=== PATIENT | female | born 1950 | race Two or more races ===

== ENCOUNTER → 2019-12-29 10:21 | Outpatient (CLI) | payer MEDICARE, SELFPAY ==
--- NOTE | ~2019-12-29 | US_ITS ---
EXAMINATION: US transvaginal EXAM DATE: 12/29/2019 10:43 INDICATION: Anemia. TECHNIQUE: Pelvic transvaginal sonogram was performed. There are multiple grayscale and Doppler imag es available for interpretation. There is no prior study for comparison. FINDINGS: Uterus and ovaries are not identified. Vaginal cuff is unremarkable. No pelvic masses ident ified or free pelvic fluid. IMPRESSION: Uterus, ovaries not identified. Reviewed, dictated and finalized at location B. GER MALL
== END ==
PROVIDERS: PCP Emergency Medicine; Visit Provider Emergency Medicine
DX: D64.9 Anemia, unspecified (principal)
CPT/HCPCS: 76830

== ENCOUNTER → 2020-01-12 09:21 | Outpatient (CLI) | payer MEDICARE, SELFPAY ==
--- NOTE | ~2020-01-12 | MM_ITS ---
EXAMINATION: MM diagnostic mammo unilat RT HISTORY: Focal mammographic asymmetry reported in upper outer quadrant of right breast on 12/20/2019 s creening mammogram TECHNIQUE: Additional 3-D tomosynthesis images of the right breast were performed and synthetic 2-D i mages were generated. CAD analysis was submitted and interpreted. COMPARISON: 12/20/2019 bilateral digital screening mammogram FINDINGS: No reproducible mass or architectural distortion is evident on these supplemental views. Th e previously reported asymmetry is consistent with overlapping fibroglandular tissue. IMPRESSION: 1. No mammographic evidence of malignancy 2. Routine annual mammographic screening follow-up is recommended BI-RADS Category 1: Negative Reviewed, dictated and finalized at location A. K MANAGER
== END ==
PROVIDERS: Visit Provider Emergency Medicine
DX: R92.2 Inconclusive mammogram (principal)
CPT/HCPCS: 77065

== ENCOUNTER → 2020-02-05 18:28 | Outpatient (CLI) | payer MEDICARE, SELFPAY ==
--- NOTE | ~2020-02-05 | XR_ITS ---
EXAMINATION: XR chest 2V EXAM DATE: 02/05/2020 18:41 INDICATION: Acute bronchitis. TECHNIQUE: Frontal and lateral projections of the chest obtained and reviewed. There is no prior susannah dy for comparison. FINDINGS: The lungs are clear. There are no pleural effusions. The cardiomediastinal silhouette is within nor mal limits. There is no pneumothorax suspected. The bones and soft tissues are unremarkable. IMPRESSION: No acute cardiopulmonary findings. Reviewed, dictated and finalized at location A.
== END ==
PROVIDERS: PCP Emergency Medicine; Visit Provider Emergency Medicine
DX: J20.9 Acute bronchitis, unspecified (principal)
CPT/HCPCS: 71046

== ENCOUNTER → 2021-01-14 07:41 | Outpatient (CLI) | payer MEDICARE, SELFPAY ==
[2021-01-14 21:18] LABS: SARS-CoV-2 RNA PCR Negative
== END ==
PROVIDERS: PCP Emergency Medicine; Visit Provider Emergency Medicine
DX: R68.89 Other general symptoms and signs (principal); Z20.822 Contact with and (suspected) exposure to COVID-19
CPT/HCPCS: C9803; U0003; U0005

== ENCOUNTER → 2022-08-05 12:35 | Outpatient (CLI) | payer MEDICARE, SELFPAY ==
--- NOTE | ~2022-08-05 | MM_ITS ---
EXAMINATION: MM screening misael BI w shyanne HISTORY: Screening mammogram TECHNIQUE: Craniocaudal and mediolateral oblique 3-D tomosynthesis images were obtained and synthetic 2-D images were generated. CAD analysis was submitted and interpreted. COMPARISON: October 12, 2020 diagnostic right mammogram, December 20, 2019 bilateral screening mammog danni BREAST PARENCHYMAL COMPOSITION: The breasts are heterogeneously dense, which may obscure small masses . FINDINGS: There is no evidence of suspicious mass, calcification, or architectural distortion to sugg est malignancy in either breast. There has been no suspicious interval change. IMPRESSION: 1. No mammographic evidence of malignancy. 2. Recommend routine screening mammography in one year. BI-RADS Category 1: Negative Reviewed, dictated and finalized at location A.
== END ==
PROVIDERS: PCP Emergency Medicine; Visit Provider Emergency Medicine
DX: Z12.31 Encounter for screening mammogram for malignant neoplasm of breast (principal)
CPT/HCPCS: 77063; 77067

== ENCOUNTER 2022-09-01 01:04 | Day surgery (SDC) | payer MEDICARE, SELFPAY ==
[2022-08-14 14:34] VITALS: BMI 19.3
[2022-09-01 08:19] VITALS: BP 135/78; PULSE 74; RESP 16; TEMP 36.1; O2SAT 100
[2022-09-01] MEDS: LACTATED RINGERS 1,000 ML 150 ML IV CONT (08:27)
--- NOTE | 2022-09-01 09:05 | P.PNAN_ITS ---
Anes - Initial Pre Proc Eval Procedure: Operation Date: 09/01/22 09:30 Proposed Procedures p Esophagogastroduodenoscopy & Screening Colonoscopy - Miguel Butterfield MD Date/Time: 09/01/22 09:05 Surgeon: Miguel Pineda MD Pre Op Diagnosis: Neoplasm screening, weightloss Patient Data Age: 72 Gender: F Height: 1.57 m Weight: 47.2 kg Last Vital Signs Temp 96.9 F L 09/01/22 08:19 Pulse 74 09/01/22 08:19 Resp 16 09/01/22 08:19 BP 135/78 09/01/22 08:19 Pulse Ox 100 09/01/22 08:19 O2 Del Method Room Air 09/01/22 08:19 Allergies Allergy/AdvReac Type Severity Reaction Status Date / Time No Known Allergies Allergy Unverified 09/01/22 08:17 Home Medications Medication Instructions Recorded Confirmed Type levothyroxine 50 mcg tablet 50 mcg PO DAILY 08/14/22 09/01/22 History (Euthyrox) Patient hx anesthesia problems: none Family hx anesthesia problems: none Results Review: All pre-operative results and documents have been reviewed as part of the pre- operative evaluation. [facility] Social History Social History Substance use: never Substance use type: does not use Living arrangements: with family Additional living arrangements comments: lives with son- [facility] care concerns: No Anes - Eval Final PreProcedure Day of Procedure 09/01/22 09:05 Patient weight: normal Heart: regular rate and rhythm Lungs: clear to auscultation Airway: Mallampati scale class II Neurological: alert and oriented Last oral intake: >/= 8 hours ASA classification: III Emergent: no Anesthetic plan: proceed Anesthesia type and monitoring: general GIVS and standard monitoring Results Review: All pre-operative results and documents have been reviewed as part of the pre- operative evaluation. Informed Consent: The patient's anesthetic plan and its attendant risks and benefits were discussed with the patient/family/POA. Questions were solicited and answers provided to the satisfaction of the patient/family/POA.
--- NOTE | 2022-09-01 09:33 | PM.HPGS ---
History of Present Illness History of Present Illness Consent: Risks, benefits, and alternatives have been discussed and questions answered. Patient agrees to proceed with procedure. Chief complaint: Neoplasm screening, weightloss Narrative: Ivelisse Soares is a 72 year old female with weight loss, never had scopes Review of Systems Constitutional: Constitutional: Denies headache(s) and Denies weakness Eyes: Eyes: Denies blurry vision ENT: Reports Normal hearing present, Denies headache(s) and Denies neck pain Cardiovascular: Cardiovascular: Denies chest pain and Denies dyspnea Respiratory: Respiratory: Denies dyspnea Gastrointestinal: Gastrointestinal: Reports no additional gastrointestinal complaints Genitourinary: Genitourinary: Denies dysuria Musculoskeletal: Musculoskeletal: Denies neck pain Integumentary/Breasts: Skin/Breast: Denies dry skin Neurologic: Reports Normal hearing present, Denies headache(s) and Denies weakness Psychiatric: Psychiatric: Denies anxiety Endocrine: Endocrine: Denies change in body appearance Hematologic/Lymphatic: Hematologic/Lymphatic: Denies easy bleeding Allergic/Immunologic: Allergic/Immunologic: Denies urticaria PMFSH Past Medical History Medical History (Updated 09/01/22 @ 09:33 by Miguel Pineda MD) Weight loss Social History Social History Substance use: never Substance use type: does not use Living arrangements: with family Additional living arrangements comments: lives with dari Ирина [facility] care concerns: No Meds Home Medications and Allergies Home Medications Medication Instructions Recorded Confirmed Type levothyroxine 50 mcg tablet 50 mcg PO DAILY 08/14/22 09/01/22 History (Euthyrox) Allergies Allergy/AdvReac Type Severity Reaction Status Date / Time No Known Allergies Allergy Unverified 09/01/22 08:17 Vital Signs Vital Signs - 24 hr 09/01/22 08:19 Temperature 96.9 F L Pulse Rate 74 Respiratory Rate 16 Blood Pressure 135/78 Pulse Oximetry 100 Oxygen Delivery Room Air Exam Const: General: comfortable and no acute distress HENMT: Face/Nose/Sinus: Normal nares present Eyes: General: appearance normal, both eyes and all related structures Neck: Neck: no JVD Resp: Auscultation: clear to auscultation bilaterally Cardio: Rate: regular rate Rhythm: regular rhythm GI: Inspection: non-distended GI Palp: Yes Soft to palpation Skin: General skin exam: normal color Neuro: General: gait normal Speech: normal speech Extrem: General: normal to inspection Psych: Mental Status: mental status grossly normal Assessment and Plan Assessment and plan (1) Weight loss: Code(s): R63.4 - Abnormal weight loss Status: Acute Assessment and Plan: egd and colonoscopy
--- NOTE | 2022-09-01 09:39 | SUR.OPER ---
EGD ended at 932. Colonoscopy began at 937.
[2022-09-01 09:50] VITALS: BP 111/74; PULSE 83; RESP 17; O2SAT 99
[2022-09-01 10:00] VITALS: BP 101/68; PULSE 81; RESP 15; O2SAT 99
[2022-09-01 10:10] VITALS: BP 132/85; PULSE 77; RESP 20; O2SAT 99
== END 2022-09-01 10:30 | disposition home or self-care (01) ==
PROVIDERS: PCP Emergency Medicine; Visit Provider Internal Medicine Gastroenterology
PROC: 0DJ08ZZ Inspection of Upper Intestinal Tract, Via Natural or Artificial Opening Endoscopic (ICD-10-PCS; CPT 43235; principal; 2022-09-01 09:30)
DX: Z12.11 Encounter for screening for malignant neoplasm of colon (principal); K64.8 Other hemorrhoids; K29.50 Unspecified chronic gastritis without bleeding; E03.9 Hypothyroidism, unspecified
CPT/HCPCS: 43239; G0121; 88305; 88342; J2704; J7120

== ENCOUNTER 2023-11-10 14:42 | Emergency (ER) | payer MEDICARE, SELFPAY ==
[2023-11-10 14:52] VITALS: BP 135/76; PULSE 77; RESP 16; TEMP 36.3; O2SAT 100
--- NOTE | 2023-11-10 15:04 | ED.EAR ---
HPI - Ear Problem General Chief complaint: Ear Stated complaint: FB R EAR Time Seen by Provider: 11/10/23 14:55 Source: patient Mode of arrival: ambulatory Limitations: no limitations History of Present Illness HPI Narrative: Ms. Soares is a 73-year-old female patient presenting to the clinic today with complaints of possible foreign body in the right ear. She reports over the last day or 2 she was using a Q-tip in thinks that there may be part of the Q-tip stuck in her ear. She states there is decreased hearing in the right ear without pain Related Data Home Medications Medication Instructions Recorded Confirmed levothyroxine 50 mcg tablet 50 mcg PO DAILY 08/14/22 11/10/23 (Euthyrox) Allergies Allergy/AdvReac Type Severity Reaction Status Date / Time No Known Allergies Allergy Verified 11/10/23 14:57 Review of Systems Review of Systems: Pertinent positives per HPI. Patient denies any fever, chills, rash, headache, visual changes, dizziness, cough, runny nose, sore throat, shortness of breath, chest pain, palpitations, nausea, vomiting, diarrhea, constipation, abdominal pain, or any urinary issues. [facility] Past Medical History Medical History H. pylori infection Weight loss Social History Social History Substance use: never Substance use type: does not use Living arrangements: with family Additional living arrangements comments: lives with son- [facility] care concerns: No Comments At the time of my signature, I reviewed and agree with the nursing past medical, surgical, social, and family history. There is no relevant family history pertinent to the patient complaint. Exam Narrative: General: Well-developed, well nourished, in no apparent distress Head: Normocephalic, atraumatic Eyes: Pupils equally round and reactive to light bilaterally, EOM intact, sclera and conjunctive clear, no discharge, lids normal Ears: TMs intact and clear, right ear canal cerumen impaction, left ear canal clear, no drainage, grossly hearing normal. Ear lavage was performed to the right ear canal successfully removing cerumen infection Nose: Nares patent, no discharge, no inflammation, no sinus tenderness. Mouth: Oropharynx without lesions or masses, good dentition, MMM. Neck: Supple, trachea midline, no enlargement of anterior or posterior cervical nodes, no thyroid masses or goiter palpable. Cardio: Regular rate and rhythm, s1 and s2 normal, no murmur appreciated. Resp: Clear to auscultation bilaterally anteriorly and posteriorly, no rhonchi, rales, wheezing or rubs Course Course Emergency Course: Portions of this record may have been created with voice recognition software. Level of Care: Express Care Visit Vital Signs Vital signs: Vital Signs Oxygen Delivery Room Air 11/10/23 14:51 Temperature 36.3 C L 11/10/23 14:52 Pulse Rate 77 11/10/23 14:52 Respiratory Rate 16 11/10/23 14:52 Blood Pressure 135/76 11/10/23 14:52 Pulse Oximetry 100 11/10/23 14:52 Oxygen Delivery Room Air 11/10/23 14:51 Vital signs reviewed Procedures Ear Wax Removal Right Ear: Ear Wax Removal Date: 11/10/23 Results: Re-examined: cerumen removed completely TM Examination: TM(s) intact, normal appearance Ear Canal Exam: atraumatic Patient Tolerated Procedure: well and no complications Complications: no problems Technique: ear canal irrigated and ear canal curetted Additional Comments: Verbal consent obtained for ear lavage. Risk and benefits explained to patient and they voiced understanding. A mixture of half warm water and half peroxide was used to irrigate ear canals. An lighted ear curette was then used to remove the cerumen from the outer external canal of ears. Cerumen was successfully removed from ear canal
== END 2023-11-10 15:10 | disposition home or self-care (01) ==
PROVIDERS: Emergency Provider Nurse Practitioner Family; PCP Emergency Medicine
DX: H61.21 Impacted cerumen, right ear (principal)
CPT/HCPCS: 69210; 99212; G0463

== ENCOUNTER 2024-05-10 12:40 | Outpatient (CLI) | payer MEDICARE, SELFPAY ==
--- NOTE | ~2024-05-10 | MM_ITS ---
EXAMINATION: MM screening misael BI w shyanne HISTORY: Screening TECHNIQUE: Craniocaudal and mediolateral oblique 3-D tomosynthesis images were obtained and synthetic 2-D images were generated. CAD analysis was submitted and interpreted. COMPARISON: Comparison to multiple prior studies sequentially, with oldest reviewed study dated 12/20. BREAST PARENCHYMAL COMPOSITION: Dense: The breasts are heterogeneously dense, which may obscure small masses FINDINGS: There is no evidence of suspicious mass, calcification, or architectural distortion to sugg est malignancy in either breast. There has been no suspicious interval change. IMPRESSION: 1. No mammographic evidence of malignancy. 2. Recommend routine screening mammography in one year. BI-RADS Category 1: Negative Reviewed, dictated and finalized at location B.
--- NOTE | ~2024-05-10 | US_ITS ---
Thyroid ultrasound. Clinical History: Thyroid nodule COMPARISON: 12/20/2019 Findings: Real-time sonography of the thyroid gland was performed. The right lobe measures 3.3 x 1.0 x 0.9 cm. The left lobe measures 2.1 x 0.9 x 1.0 cm. The isthmus is 1 mm in AP diameter. There is a 3 mm hyperechoic nodule at the left inferior pole, possibly calcified. This is stable from prior exam. Impression: Stable tiny left lower pole thyroid nodule, hyperechoic and possibly calcified.. Reviewed, dictated and finalized at location . Impression: Stable tiny left lower pole thyroid nodule, hyperechoic and possibly calcified. .
== END 2024-05-10 12:41 ==
LOC: MICIMG 12:41
PROVIDERS: PCP Emergency Medicine; Visit Provider Emergency Medicine
DX: Z12.31 Encounter for screening mammogram for malignant neoplasm of breast (principal); E06.3 Autoimmune thyroiditis
CPT/HCPCS: 76536; 77063; 77067

== ENCOUNTER 2024-07-24 10:53 | Outpatient (CLI) | payer MEDICARE, SELFPAY ==
--- NOTE | ~2024-07-24 | DEXA_ITS ---
Bone Density Report Name: DAVY MARINELLI Age: 73 Sex: Female Ethnicity: White Date of : 1950 Indication: postmenopausal; screening for osteoporosis; cancer; Referring Provider: ALLISON CHAUHAN Study: Bone densitometry was performed. Exam Date: July 24, 2024 Accession number: [id number] Bone Density: Region BMD T-score Z-score Classification AP Spine(L1-L4) 1.109 0.6 2.8 Normal Femoral Neck (Left) 0.739 -1.0 0.9 Normal Total Hip (Left) 0.947 0.0 1.6 Normal Femoral Neck (Right) 0.761 -0.8 1.1 Normal Total Hip (Right) 0.960 0.1 1.8 Normal Total Hip Mean 0.953 0.1 1.7 Normal World Health Organization criteria for BMD impression classify patients as: Normal (T-score at or above -1.0), Osteopenia (T-score between -1.0 and -2.5), or Osteoporosis (T-score at or below -2.5). 10-year Fracture Risk: FRAX not reported because: All T-scores for Spine Total, Hip Total, Femoral Neck at or above -1.0 Clinical Information Provided by Patient: Has the following medical conditions: Cancer Patient maximum height was 61.0 No regular weight bearing exercise Onset of menses at age 16 Number of children 2 Impression: The patient has normal bone mass. Discussion: BONE DENSITY IS ABOVE THE MINIMUM DESIRABLE LEVEL AT ALL SKELETAL SITES TESTED. This patient?s bone mineral density is above the minimum desirable level (T-score -1.0 or better) at all sites measured. The patient should follow a healthful lifestyle (good nutrition with adequate calcium and vitamin D, and appropriate weight-bearing exercise). Follow-Up: Consider repeating this study in 5 years or sooner if there is some new clinical indication. Reported by: PRASHANT on 07/24/2024 11:34:00 AM. Reviewed, dictated and finalized at location ATonya [facility]
== END 2024-07-24 10:54 | disposition home or self-care (01) ==
LOC: ANHIMG 10:54
PROVIDERS: PCP Emergency Medicine; Visit Provider Emergency Medicine
DX: Z78.0 Asymptomatic menopausal state (principal)
CPT/HCPCS: 77080

== ENCOUNTER 2025-10-14 12:50 | Emergency (ER) | payer MEDICARE, SELFPAY ==
--- NOTE | 2025-10-14 12:51 | ED_ITS ---
HPI - Ear Problem General Chief complaint: Ear Stated complaint: FB Right Ear? Time Seen by Provider: 10/14/25 12:51 Source: patient Mode of arrival: ambulatory Limitations: no limitations History of Present Illness HPI Narrative: Ivelisse is a 75-year-old female patient presenting to the clinic today with complaints of decrease hearing in the right ear x1 week. Her son looked in the right ear and seen something stuck in her ear. Denies any ear pain or URI symptoms. Related Data Home Medications ?Medication ?Instructions ?Recorded ?Confirmed ?Last Taken ?Type levothyroxine 50 mcg tablet 50 mcg PO DAILY 08/14/22 1 12/14/24 Unknown History (Euthyrox) Allergies Allergy/AdvReac Type Severity Reaction Status Date / Time No Known Allergies Allergy Verified 10/14/25 13:25 Review of Systems Review of Systems: Pertinent positives per HPI. Patient denies any fever, chills, rash, headache, visual changes, dizziness, cough, shortness of breath, chest pain, palpitations, nausea, vomiting, diarrhea, constipation, abdominal pain, or any urinary issues. PMFSH Past Medical History Medical History H. pylori infection Weight loss Social History Social History Substance use: never Substance use type: does not use Living arrangements: with family Additional living arrangements comments: lives with [facility]- [facility] concerns: No Comments At the time of my signature, I reviewed and agree with the nursing past medical, surgical, social, and family history. There is no relevant family history pertinent to the patient complaint. Exam Narrative: General: Well-developed, well nourished, in no apparent distress Head: Normocephalic, atraumatic Eyes: Pupils equally round and reactive to light bilaterally, EOM intact, sclera and conjunctive clear, no discharge, lids normal Ears: TMs intact and clear, cerumen impaction to the right ear canal, fluid noted behind the right TM, ear irrigation performed, ear canals clear, no drainage, grossly hearing normal. Nose: Nares patent, no discharge, no inflammation, no sinus tenderness. Mouth: Oral pharynx without lesions or masses, good dentition, MMM. Neck: Supple, trachea midline, no enlargement of anterior or posterior cervical nodes, no thyroid masses or goiter palpable. Cardio: Regular rate and rhythm, s1 and s2 normal, no murmur appreciated. Resp: Clear to auscultation bilaterally, no rhonchi, rales, wheezing or rubs Course Course Emergency Course: Portions of this record may have been created with voice recognition software. Level of Care: Express Care Visit Vital Signs Vital signs: Vital Signs Temperature 36.1 C L 10/14/25 13:00 Pulse Rate 72 10/14/25 13:00 Respiratory Rate 16 10/14/25 13:00 Blood Pressure 129/72 10/14/25 13:00 Pulse Oximetry 98 10/14/25 13:00 Oxygen Delivery Room Air 10/14/25 13:00 Temperature 36.1 C L 10/14/25 13:00 Pulse Rate 72 10/14/25 13:00 Respiratory Rate 16 10/14/25 13:00 Blood Pressure 129/72 10/14/25 13:00 Pulse Oximetry 98 10/14/25 13:00 Oxygen Delivery Room Air 10/14/25 13:00 Vital signs reviewed Procedures Ear Wax Removal Right Ear: Ear Wax Removal Date: 10/14/25 Cerumenolytic Used: other (Debrox) Results: Re-examined: cerumen removed completely TM Examination: TM(s) intact, normal appearance Ear Canal Exam: atraumatic Patient Tolerated Procedure: well and no complications Complications: no problems Technique: ear canal irrigated and ear canal curetted Additional Comments: Verbal consent obtained for ear irrigation. Risk and benefits explained and patient voiced understanding. Ear irrigation performed using an elephant ear and spray water bottle. Mixture of 1/2 peroxide 1/2 water used to irrigate ear canal. Cerumen impaction cleared and TM visualized without redness. Grossly hearing normal. Patient tolerated procedure well Medical Decision Making MDM Narrative Medical decision making narrative: At the time of visit patient is resting comfortably on the exam table. Patient appears to be nontoxic. Complaints of decrease hearing in the right ear x1 week. Her son looked in the right ear and seen something stuck in her ear. Denies any ear pain or URI symptoms. Debrox 5 gtt in right ear ordered and ear irrigation ordered. Medications: Debrox 5gtt in right ear instilled. Plan: Cerumen impaction to the right ear canal. Ear irrigation performed successfully does have some fluid noted behind the right TM. Supportive measures were discussed with the patient and they voiced understanding discharge instructions and agrees to treatment plan. Return precautions reviewed Differential Diagnosis Differential Diagnosis: Otitis media, otitis externa, eustachian tube dysfunction, cerumen impaction, upper respiratory infection, foreign body in ear, Vital Signs Vital Signs: Vital Signs Temperature 36.1 C L 10/14/25 13:00 Pulse Rate 72 10/14/25 13:00 Respiratory Rate 16 10/14/25 13:00 Blood Pressure 129/72 10/14/25 13:00 Pulse Oximetry 98 10/14/25 13:00 Oxygen Delivery Room Air 10/14/25 13:00 Temperature 36.1 C L 10/14/25 13:00 Pulse Rate 72 10/14/25 13:00 Respiratory Rate 16 10/14/25 13:00 Blood Pressure 129/72 10/14/25 13:00 Pulse Oximetry 98 10/14/25 13:00 Oxygen Delivery Room Air 10/14/25 13:00 Discharge Plan Discharge Clinical Impression: Cerumen impaction Qualifiers: Laterality: right Qualified Code(s): H61.21 - Impacted cerumen, right ear Acute serous otitis media Qualifiers: Laterality: right Recurrence: non-recurrent Qualified Code(s): H65.01 - Acute serous otitis media, right ear Patient Disposition: Home Condition: Stable Instructions: Antibiotic Form, Fluid In The Ear (Serous Otitis Media) (ED) Additional Instructions: Cerumen impaction removed in the clinic today. Increase fluids and stay well hydrated May take Tylenol or motrin as directed on bottle for pain/fever May use Flonase 1 spray in each nare daily May take OTC antihistamines such as Zyrtec or Claritin daily as directed on bottle Go to the ED if you develop a worsening in your condition- high fever not controlled by Tylenol or Motrin, dehydration, weakness, lethargy, shortness of breath, or chest pain. Follow up with your PCP in 3-5 days if symptoms persist. Patient Language: Arabella Prescriptions: No Action levothyroxine [Euthyrox] 50 mcg tablet 50 mcg PO DAILY Follow-up/Referrals: Rodger,MD Eliseo [Primary Care Provider, Unknown] Time of Disposition: 13:33 Quality NIHSS Nursing Documentation ED NIHSS nursing documentation: reviewed/agree
[2025-10-14 13:00] VITALS: BP 129/72; PULSE 72; RESP 16; TEMP 36.1; O2SAT 98
[2025-10-14] MEDS: CARBAMIDE PEROXIDE 6.5% OT SOLN 15 ML BTL 5 DROP RIGHT EAR (13:09)
== END 2025-10-14 13:40 | disposition home or self-care (01) ==
PROVIDERS: Emergency Provider Nurse Practitioner Family; PCP Family Medicine
DX: H61.21 Impacted cerumen, right ear (principal); H65.01 Acute serous otitis media, right ear
CPT/HCPCS: 69210; 99212; A9270; G0463